=== PATIENT | female | born 1975 | race Caucasian/White ===

== ENCOUNTER 2016-04-22 21:50 | Emergency (ER) | payer OTHER ==
[~2016-04-22] VITALS: Ht 160 cm; Wt 66.0 kg
[~2016-04-22 21:50] MED LIST: CEFE1FRO IV; CYCL-319 PO; LORA10TA3 PO; NAPR-688 PO; ONDA-43 PO; VALP250C PO
[2016-04-22 21:53] VITALS: Ht 160 cm; Wt 66.0 kg
[2016-04-22] MEDS ORDERED: ONDANSETRON 4 MG INJ IV STA (22:25)
[2016-04-22] MEDS ORDERED: morphine 4 MG/ML VIAL IV STA (22:25)
[2016-04-22 23:17] LABS: ADD UMIC YES; URINE BILIRUBIN (Dip) NEGATIVE (NEGATIVE); URINE BLOOD (Dip) NEGATIVE (NEGATIVE); URINE COLOR LT. YELLOW (YELLOW); URINE GLUCOSE (Dip) NEGATIVE (NEGATIVE); URINE KETONES (Dip) TRACE (NEGATIVE); URINE LEUKOCYTE ESTERASE (Dip) 2+ (NEGATIVE); URINE NITRITE (Dip) POSITIVE (NEGATIVE); URINE TOTAL PROTEIN (Dip) NEGATIVE (NEGATIVE); URINE UROBILINOGEN (Dip) 1.0 E.U./dL (0.1-1.0)
--- NOTE | 2016-04-22 23:25 | ERD ---
ER Documentation Chief Complaint Date/Time DATE: 04/22/16 TIME: 23:23 Chief Complaint right thigh pain radaiting to back HPI 40 year old female with a history of emphysematous pyelonephritis with stent placement comes in with right sided flank pain that radiates down her leg for the past 2 days. She denies fever, chills, chest pain, shortness of breath. No dysuria, urgency or frequency. ROS All systems reviewed and are negative except as per history of present illness. Medications Home Meds Active Scripts Hydrocodone/Acetaminophen ([place] 5-325 Tablet) 1 Each Tablet, 1 TAB PO Q6H Y for PAIN, #20 TAB Prov:HUMBERTO CROSS PA-C 04/23/16 Ciprofloxacin Hcl* (Ciprofloxacin Hcl*) 500 Mg Tablet, 500 MG PO BID for 10 Days , TAB Prov:HUMBERTO CROSS PA-C 04/23/16 Ondansetron Hcl* (Zofran*) 4 Mg Tab, 4 MG PO Q6H Y for NAUSEA AND OR VOMITING for 14 Days, TAB Prov:JASSI GODINEZ S. 10/03/15 Cefepime Hcl/Dextrose, Iso-Osm (Cefepime 1 Gm Injection) 1 Gm/50 Ml Froz.piggy, 1 GM IV DAILY for 10 Days Prov:JASSI GODINEZ S. 10/03/15 Valproic Acid* (Depakene*) 250 Mg Capsule, 250 MG PO BID for 30 Days, CAP Prov:JASSI GODINEZ S. 10/03/15 Cyclobenzaprine Hcl* (Cyclobenzaprine Hcl*) 10 Mg Tablet, 10 MG PO TID for 30 Days, TAB Prov:JASSI GODINEZ S. 10/03/15 Reported Medications Loratadine* (Loratadine*) 10 Mg Tablet, 10 MG PO DAILY, #30 TAB 09/28/15 Naproxen* (Naproxen*) 500 Mg Tablet, 500 MG PO TID, TAB 09/28/15 Allergies Allergies: Coded Allergies: ibuprofen (Verified Allergy, Unknown, 03/06/14) PMhx/Soc History of Surgery: Yes (hysterectomy, R ureteral stent placed end of august) Anesthesia Reaction: No Hx Neurological Disorder: Yes (auqino's palsy, migraines) Hx Respiratory Disorders: No Hx Cardiac Disorders: No Hx Psychiatric Problems: No Hx Miscellaneous Medical Probl: Yes (B kidney stones) Hx Alcohol Use: Yes (beer occasionally) Hx Substance Use: No Hx Tobacco Use: No Smoking Status: Never smoker Physical Exam Vitals Vital Signs Date Time Temp Pulse Resp B/P Pulse Ox O2 Delivery O2 Flow Rate FiO2 04/23/16 01:49 98.0 57 115/60 100 Room Air 04/22/16 21:53 98.4 63 20 142/67 98 Physical Exam General: Well-developed, well-nourished. The patient appears in no acute distress. HEENT: Head is normocephalic, atraumatic. No scleral icterus. Pupils are equal , round, and reactive. Oral mucous membranes are moist. No pharyngeal erythema. Neck: Supple. Nontender. Lungs: Clear to auscultation. Normal air movement. Heart: Regular rate and rhythm. S1 and S2 are normal. No murmurs, gallops, or rubs. Abdomen: Soft, nontender, nondistended. Bowel sounds are normoactive. Extremities: No clubbing or cyanosis. Normal pulses. Moving extremities x 4. No weakness. Neurologic: Alert and oriented 3. No focal deficits. Skin: Normal turgor. No rash or lesions. Result Diagram: 04/22/16224204/22/162242 Results 24 hrs Laboratory Tests Test 04/22/16 22:40 04/22/16 22:43 Urine Bacteria MANY Urine Bilirubin NEGATIVE Urine Clarity CLEAR Urine Color LT. YELLOW Urine Glucose NEGATIVE% Urine Hemoglobin NEGATIVE Urine Ketones TRACE Urine Leukocyte Esterase 2+ Urine Microscopic RBC 0-2/HPF Urine Microscopic WBC 10-25/HPF Urine Nitrite POSITIVE Urine Specific [place] 1.020 Urine Squamous Epithelial Cells FEW Urine Total Protein NEGATIVE Urine Urobilinogen 1.0 E.U./dL Urine pH 6.5 Alanine Aminotransferase (ALT/SGPT) 70IU/L Albumin 4.6g/dl Albumin/Globulin Ratio 1.31 Alkaline Phosphatase 101IU/L Anion Gap 19 Aspartate Amino Transf (AST/SGOT) 41IU/L Basophils % 0.5% Blood Urea Nitrogen 9mg/dl Calcium Level 9.5mg/dl Carbon Dioxide Level 29mmol/L Chloride Level 100mmol/L Creatinine 0.70mg/dl Direct Bilirubin 0.00mg/dl Eosinophils % 2.1% Globulin 3.50g/dl Glucose Level 117mg/dl Hematocrit 39.1% Hemoglobin 13.7g/dl Indirect Bilirubin 0.3mg/dl Lipase 120U/L Lymphocytes % 41.9% Mean Corpuscular Hemoglobin 30.6pg Mean Corpuscular Hemoglobin Concent 35.0g/dl Mean Corpuscular Volume 87.3fl Mean Platelet Volume 9.4fl Monocytes % 9.9% Neutrophils % 45.1% Platelet Count 65907^3/UL Potassium Level 4.0mmol/L Red Blood Count 4.4810^6/ul Red Cell Distribution Width 40.5% Sodium Level 144mmol/L Total Bilirubin 0.3mg/dl Total Protein 8.1g/dl White Blood Count 8.010^3/ul Current Medications Medications (Trade) Dose Ordered Sig/Ramiro Route PRN Reason Start Time Stop Time Status Last Admin Dose Admin Morphine Sulfate (morphine) 4 mg ONCE STAT IV 04/22/16 22:25 04/22/16 22:26 DC 04/22/16 22:46 Ondansetron HCl 4 mg 4 mg ONCE STAT IV 04/22/16 22:25 04/22/16 22:26 DC 04/22/16 22:46 Sodium Chloride 1,000 ml @ 1,000 mls/hr Q1H ONCE IV 04/22/16 23:30 04/23/16 00:29 DC 04/23/16 01:05 Sodium Chloride (NS) 100 ml @ ud STK-MED ONCE .ROUTE 04/22/16 23:54 04/22/16 23:55 DC 04/23/16 00:10 Iohexol 150 ml 150 ml STK-MED ONCE .ROUTE 04/22/16 23:54 04/22/16 23:55 DC 04/23/16 00:09 Ceftriaxone Sodium (Rocephin) 50 ml @ 100 mls/hr ONCE ONCE IVPB 04/23/16 00:00 04/23/16 00:29 DC 04/23/16 01:05 PROCEDURE: CT ABDOMEN/PELVIS WITH CONTRAST CLINICAL INDICATION: 40-year-old female with right flank pain. TECHNIQUE: The study was performed utilizing a [employer] VCT 64-slice CT scanner. Direct axial sections were obtained through the abdomen and pelvis with the use of 100 cc of Omnipaque-300 nonionic intravenous contrast material. Sagittal and coronal reformations were obtained. Automated exposure control and iterative reconstruction techniques were utilized for this examination. The images were reviewed on a PACS workstation. CTD/vol = 10.7 mGy; Total Exam DLP = 599.0 mGy-cm. COMPARISON: CT abdomen/pelvis October 02, 2015. FINDINGS: There is minimal bibasilar subsegmental atelectasis. There is no evidence for significant pleural effusion. The liver has a normal size and contour. There is diffuse decreased density throughout the liver consistent with fatty infiltration without focal areas of abnormal density or contrast enhancement. No intrahepatic nor extrahepatic biliary ductal dilatation is seen. The gallbladder demonstrates no wall thickening nor pericholecystic fluid. No biliary stones are evident. The pancreas is without areas of abnormal attenuation or contrast enhancement. This spleen is identified and has a normal size without abnormal density or contrast enhancement. The adrenal glands are unremarkable. The kidneys are functional bilaterally. There is a irregular contour within the right renal cortex consistent with scarring. There is mild residual prominence of the right renal collecting system with right-sided hydronephrosis and prominent dilatation of the distal right ureter. Note however that there is no longer evidence for significant periureteral infiltration. Thickened perinephric infiltration. The urinary bladder contains urine. There is no evidence for bowel obstruction. The appendix is visualized and is without edema or surrounding inflammatory reaction. The uterus is unremarkable. There is no significant free fluid. The aortoiliac vessels are without aneurysmal dilatation. The osseous structures are intact. IMPRESSION: 1. Minimal bibasilar subsegmental atelectasis. 2. Diffuse fatty infiltration of the liver. 3. Scarring within the right kidney with mild residual prominence of the collecting system and right-sided hydroureteronephrosis with dilatation of the distal right ureter as previously visualized with resolving perinephric and periureteral infiltration. A persistent partially obstructing distal right ureteral stricture cannot be excluded. 4. No CT evidence for appendicitis. .Dejon Mathur MD, Date Time Electronically viewed and signed by .Dejon Mathur MD, MD on 04/23/2016 01:24 Procedures/MDM ED COURSE: Patient had labs, urine obtained. IV line established, she was given NS bolus, Morphine 4mg IV, zofran 4mg IV. Rocephin 1gm IV was administered as well as NS 1L IV. MDM: 40 year old female comes in with right flank pain and evidence of UTI, she was treated as pyelonephritis. CT shows evidence of inflammatory changes, there is no evidence of emphysematous pyelonephritis, infected kidney stone. She was concerned that we may need to call her urologist who is Dr. Carroll, I explained to the patient that I spoke with my attending physician regarding this , as well as her presentation, lab work and urine, and CT, and that there was no urologic or surgical emergency, therefore she may be discharged home. I emphasized to her that we did treat her pain, she was given IV antibiotics, as well as fluids. Her renal function is normal, and patient is not septic. Given this that we can discharge her at this time, and she may follow-up with him outpatient. The case was reviewed and discussed with Dr. Gregg who agrees with the plan of care including labs, treatment, and advanced imaging as appropriate. Departure Diagnosis: Primary Impression: Pyelonephritis Condition: Good HUMBERTO CROSS PA-C Apr 22, 2016 23:25
[2016-04-22 23:27] LABS: ALBUMIN 4.6 g/dl (3.3-4.9)
[2016-04-22 23:30] LABS: ALBUMIN/GLOBULIN RATIO 1.31; BILIRUBIN,INDIRECT 0.3 mg/dl (0-1.1); BILIRUBIN,TOTAL 0.3 mg/dl (0.2-1.3); CREATININE 0.7 mg/dl (0.44-1.00); TOTAL PROTEIN 8.1 g/dl (6.1-8.1)
[2016-04-22] MEDS ORDERED: SOD CHLORIDE 0.9% 1,000 ML IV ONE (23:30)
[2016-04-22 23:31] LABS: CALCIUM 9.5 mg/dl (8.4-10.2)
[2016-04-22 23:54] LABS: BACTERIA,URINE MANY; SQUAMOUS EPITHELIAL CELL,UR FEW; URINE RBCS 0-2 /HPF (0)
[2016-04-22] MEDS ORDERED: IOHEXOL 300MG/ML 150 ML BTL ONE (23:54)
[2016-04-22] MEDS ORDERED: SOD CHLORIDE 0.9% 100 ML ONE (23:54)
[2016-04-23] MEDS ORDERED: CEFTRIAXONE 1 GM/50 ML (PMX) 50 ML IVPB ONE
[2016-04-23 00:06] LABS: RED BLOOD COUNT 4.48 10^6/ul (4.20-5.40)
[2016-04-23 00:07] LABS: HEMATOCRIT 39.1 % (37.0-47.0); HEMOGLOBIN 13.7 g/dl (12.0-16.0); MEAN CORPUSCULAR HEMOGLOBIN 30.6 pg (29.0-33.0); MEAN CORPUSCULAR VOLUME 87.3 fl (82.0-101.0); PLATELET COUNT 417 10^3/UL (140-440); RED CELL DISTRIBUTION WIDTH 40.5 % (11.5-14.5)
[2016-04-23 00:08] LABS: BASOPHILS % 0.5 % (0.0-2.0); EOSINOPHILS % 2.1 % (0.0-7.0); LYMPHOCYTES % 41.9 % (15.0-51.0); MEAN PLATELET VOLUME 9.4 fl (7.4-10.4); MONOCYTES % 9.9 % (0.0-11.0); NEUTROPHILS % 45.1 % (39.0-77.0)
--- NOTE | 2016-04-23 01:24 | RADRPT ---
PROCEDURE: CT ABDOMEN/PELVIS WITH CONTRAST CLINICAL INDICATION: 40-year-old female with right flank pain. TECHNIQUE: The study was performed utilizing a GE [employer] VCT 64-slice CT scanner. Direct axia l sections were obtained through the abdomen and pelvis with the use of 100 cc of Omnipaque-300 dewayne onic intravenous contrast material. Sagittal and coronal reformations were obtained. Automated expos ure control and iterative reconstruction techniques were utilized for this examination. The images were reviewed on a PACS workstation. CTD/vol = 10.7 mGy; Total Exam DLP = 599.0 mGy-cm. COMPARISON: CT abdomen/pelvis October 02, 2015. FINDINGS: There is minimal bibasilar subsegmental atelectasis. There is no evidence for significant pleural e ffusion. The liver has a normal size and contour. There is diffuse decreased density throughout th e liver consistent with fatty infiltration without focal areas of abnormal density or contrast enhan cement. No intrahepatic nor extrahepatic biliary ductal dilatation is seen. The gallbladder demonstr ates no wall thickening nor pericholecystic fluid. No biliary stones are evident. The pancreas is wi thout areas of abnormal attenuation or contrast enhancement. This spleen is identified and has a no rmal size without abnormal density or contrast enhancement. The adrenal glands are unremarkable. The kidneys are functional bilaterally. There is a irregular contour within the right renal cortex cons istent with scarring. There is mild residual prominence of the right renal collecting system with r ight-sided hydronephrosis and prominent dilatation of the distal right ureter. Note however that there is no longer evidence for significant periureteral infiltration. Thickened perinephric infilt ration. The urinary bladder contains urine. There is no evidence for bowel obstruction. The appendi x is visualized and is without edema or surrounding inflammatory reaction. The uterus is unremarkabl e. There is no significant free fluid. The aortoiliac vessels are without aneurysmal dilatation. Th e osseous structures are intact. IMPRESSION: 1. Minimal bibasilar subsegmental atelectasis. 2. Diffuse fatty infiltration of the liver. 3. Scarring within the right kidney with mild residual prominence of the collecting system and righ t-sided hydroureteronephrosis with dilatation of the distal right ureter as previously visualized wi th resolving perinephric and periureteral infiltration. A persistent partially obstructing distal r ight ureteral stricture cannot be excluded. 4. No CT evidence for appendicitis. .Dejon Mathur MD, MD Date Time Electronically viewed and signed by .Dejon Mathur MD, MD on 04/23/2016 01:24 .[place]
[2016-04-23] MEDS ORDERED: CIPR500T4 PO (01:31)
[2016-04-23] MEDS ORDERED: HYDR-906 PO (01:31)
[2016-04-23 01:49] VITALS: BP 115/60; PULSE 57; TEMP 98
[2016-04-23] MEDS ORDERED: morphine 4 MG/ML VIAL IV STA (01:56)
== END 2016-04-23 04:56 | disposition home or self-care (01) ==
LOC: FTE 21:50
DX: N12 Tubulo-interstitial nephritis, not specified as acute or chronic (principal)
CPT/HCPCS: 36415; 74177; 80053; 81001; 83690; 85025; 87086; 96365; 96375; 96376; J0696; J2270; J2405; J7030; Q9967; Z7502; Z7610; 81003

== ENCOUNTER 2016-05-07 23:49 | Emergency (ER) | payer OTHER ==
[~2016-05-07] VITALS: Ht 152.4 cm; Wt 63.5 kg
[~2016-05-07 23:49] MED LIST changes: +CIPR500T4 PO; +HYDR-906 PO
[2016-05-08 01:35] VITALS: Ht 152.4 cm; Wt 63.5 kg
[2016-05-08] MEDS ORDERED: SOD CHLORIDE 0.9% 1,000 ML IV STA (01:57)
[2016-05-08] MEDS ORDERED: ONDANSETRON 4 MG INJ IV STA (01:57)
[2016-05-08] MEDS ORDERED: morphine 10 MG INJ IV ONE (02:00)
[2016-05-08 02:31] LABS: ADD SCAN DIFF NO
[2016-05-08 02:35] LABS: ADD UMIC YES; URINE BLOOD (Dip) 3+ (NEGATIVE); URINE COLOR LT. YELLOW (YELLOW); URINE GLUCOSE (Dip) NEGATIVE (NEGATIVE); URINE KETONES (Dip) TRACE (NEGATIVE); URINE LEUKOCYTE ESTERASE (Dip) NEGATIVE (NEGATIVE); URINE NITRITE (Dip) NEGATIVE (NEGATIVE); URINE TOTAL PROTEIN (Dip) NEGATIVE (NEGATIVE); URINE UROBILINOGEN (Dip) 1.0 E.U./dL (0.1-1.0)
[2016-05-08 02:37] LABS: BASOPHILS % 0.4 % (0.0-2.0); EOSINOPHILS # 0.2 10^3/ul (0.0-0.5); EOSINOPHILS % 2.4 % (0.0-7.0); HEMATOCRIT 38.7 % (37.0-47.0); HEMOGLOBIN 13.4 g/dl (12.0-16.0); LYMPHOCYTES # 3.5 10^3/ul (0.8-2.9); LYMPHOCYTES % 37.2 % (15.0-51.0); MEAN CORPUSCULAR HEMOGLOBIN 30.1 pg (29.0-33.0); MEAN CORPUSCULAR HGB CONC 34.6 g/dl (32.0-37.0); MEAN PLATELET VOLUME 8.9 fl (7.4-10.4); MONOCYTE # 0.8 10^3/ul (0.3-0.9); MONOCYTES % 8.8 % (0.0-11.0); NEUTROPHIL # 4.7 10^3/ul (1.6-7.5); NEUTROPHILS % 50.8 % (39.0-77.0); PLATELET COUNT 341 10^3/UL (140-415); RED BLOOD COUNT 4.45 10^6/ul (4.20-5.40); RED CELL DISTRIBUTION WIDTH 12.5 % (11.5-14.5); WHITE BLOOD COUNT 9.3 10^3/ul (4.8-10.8)
[2016-05-08 02:37] LABS: URINE BILIRUBIN (Dip) NEGATIVE (NEGATIVE)
[2016-05-08 02:45] LABS: BACTERIA,URINE MODERATE; SQUAMOUS EPITHELIAL CELL,UR MANY
[2016-05-08 03:04] LABS: ALBUMIN 4.3 g/dl (3.3-4.9); CHLORIDE 103 mmol/L (97-110)
[2016-05-08 03:07] LABS: BILIRUBIN,INDIRECT 0.5 mg/dl (0-1.1); BILIRUBIN,TOTAL 0.5 mg/dl (0.2-1.3); CREATININE 0.59 mg/dl (0.44-1.00)
[2016-05-08 03:08] LABS: ALANINE AMINOTRANSFERASE 54 IU/L (13-69); ALBUMIN/GLOBULIN RATIO 1.38; ALKALINE PHOSPHATASE 124 IU/L (42-121); ASPARTATE AMINO TRANSFERASE 40 IU/L (15-46); BLOOD UREA NITROGEN 8 mg/dl (7-20); CALCIUM 9.6 mg/dl (8.4-10.2); CARBON DIOXIDE 25 mmol/L (21-31); GLUCOSE 107 mg/dl (70-220); TOTAL PROTEIN 7.4 g/dl (6.1-8.1)
[2016-05-08 03:22] LABS: ANION GAP 18 (8-16)
--- NOTE | 2016-05-08 03:25 | RADRPT ---
PROCEDURE: CHEST - 1 VIEW CLINICAL INDICATION: 40-year-old female with chest/abdominal pain. TECHNIQUE: A single frontal AP view of the chest was performed portably. The images were reviewed on a PACS workstation. COMPARISON: Chest X-ray October 02, 2015. FINDINGS: There has been interval removal of the left-sided PICC line. There is a small ovoid nodular density within the left upper lung zone measuring 4 mm presumably representing a granuloma without signific ant interval change. The cardiomediastinal silhouette has a normal appearance. There is no evidenc e for an infiltrate. There is no evidence for congestive heart failure. There is no evidence for pn eumothorax. The osseous structures are intact. IMPRESSION: 1. No evidence for active cardiopulmonary disease. 2. Left upper lung zone 4 mm granuloma. .Dejon Mathur MD, MD Date Time Electronically viewed and signed by .Dejon Mathur MD, on 05/08/2016 03:25 .M/
[2016-05-08 03:49] LABS: POTASSIUM 3.9 mmol/L (3.5-5.1); SODIUM 142 mmol/L (135-144); TROPONIN-I < 0.012 ng/ml (0.00-0.12)
[2016-05-08] MEDS ORDERED: HYDR-906 PO (04:47)
[2016-05-08 04:55] VITALS: BP 113/64; PULSE 50; RESP 16; TEMP 98.7
--- NOTE | 2016-05-08 14:14 | ERD ---
ER Documentation Chief Complaint Date/Time DATE: 05/08/16 TIME: 14:01 Chief Complaint Chest pain and flank pain 3 weeks HPI 40 year old female with a history of emphysematous pyelonephritis is presenting with chronic flank pain that is worsening. She was seen 04/22/16 in the ED and had a CT scan done that showed persistent right hydronephrosis and hydroureter with likely distal stricture. She also had a UTI at that time and was placed on antibiotics. She had scheduled a follow up with her URologist 05/2016. Her symptoms have slightly improved, but she continues to have pain. Pain is stabbing, 9/10 in the right flank, radiating to the groin and down her right leg. There is no change in the location or quality of her pain from her usual. She has no pain medications at home. She also complains of chest pain, which she states is due to her anxiety. She did not take her anxiety medication today. She denies fevers, chills, vomiting, diarrhea. ROS All systems reviewed and are negative except as per history of present illness. Medications Home Meds Active Scripts Hydrocodone/Acetaminophen ([place] 5-325 Tablet) 1 Each Tablet, 1 TAB PO Q6H Y for PAIN, #7 TAB Prov:MING BALDWIN MD 05/08/16 Hydrocodone/Acetaminophen ([place] 5-325 Tablet) 1 Each Tablet, 1 TAB PO Q6H Y for PAIN, #20 TAB Prov:HUMBERTO CROSS PA-C 04/23/16 Ciprofloxacin Hcl* (Ciprofloxacin Hcl*) 500 Mg Tablet, 500 MG PO BID for 10 Days , TAB Prov:HUMBERTO CROSS PA-C 04/23/16 Ondansetron Hcl* (Zofran*) 4 Mg Tab, 4 MG PO Q6H Y for NAUSEA AND OR VOMITING for 14 Days, TAB Prov:JASSI GODINEZ S. 10/03/15 Cefepime Hcl/Dextrose, Iso-Osm (Cefepime 1 Gm Injection) 1 Gm/50 Ml Froz.piggy, 1 GM IV DAILY for 10 Days Prov:JASSI GODINEZ S. 10/03/15 Valproic Acid* (Depakene*) 250 Mg Capsule, 250 MG PO BID for 30 Days, CAP Prov:JASSI GODINEZ S. 10/03/15 Cyclobenzaprine Hcl* (Cyclobenzaprine Hcl*) 10 Mg Tablet, 10 MG PO TID for 30 Days, TAB Prov:JASSI GODINEZ 10/03/15 Reported Medications Loratadine* (Loratadine*) 10 Mg Tablet, 10 MG PO DAILY, #30 TAB 09/28/15 Naproxen* (Naproxen*) 500 Mg Tablet, 500 MG PO TID, TAB 09/28/15 Allergies Allergies: Coded Allergies: ibuprofen (Verified Allergy, Unknown, 03/06/14) PMhx/Soc History of Surgery: Yes (hysterectomy, R ureteral stent placed end of august) Anesthesia Reaction: No Hx Neurological Disorder: Yes (aquino's palsy, migraines) Hx Respiratory Disorders: No Hx Cardiac Disorders: No Hx Psychiatric Problems: Yes (anxiety) Hx Miscellaneous Medical Probl: Yes (B kidney stones) Hx Alcohol Use: Yes (beer occasionally) Hx Substance Use: No Hx Tobacco Use: No Smoking Status: Never smoker FmHx Family History: No diabetes Physical Exam Vitals Vital Signs Date Time Temp Pulse Resp B/P Pulse Ox O2 Delivery O2 Flow Rate FiO2 05/08/16 04:55 98.7 50 16 113/64 100 Room Air 05/08/16 03:00 50 13 104/63 99 Room Air 05/08/16 01:35 97.2 65 18 113/66 99 Physical Exam Const: Nontoxic, appears uncomfortable Head: Atraumatic Eyes: Normal Conjunctiva ENT: Normal External Ears, Nose and Mouth. Neck: Full range of motion. No meningismus. Resp: Clear to auscultation bilaterally Cardio: Regular rate and rhythm, no murmurs Abd: Soft, mild RLQ tenderness, no rebound or guarding, non distended. Normal bowel sounds Skin: No petechiae or rashes Back: R CVA mild tenderness Ext: No cyanosis, or edema Neur: Awake and alert Psych: Depressed Mood and flat Affect Result Diagram: 05/08/1622105/08/16221 Results 24 hrs Laboratory Tests Test 05/08/16 02:10 05/08/16 02:22 Urine Bacteria MODERATE Urine Bilirubin NEGATIVE Urine Clarity CLEAR Urine Color LT. YELLOW Urine Glucose NEGATIVE% Urine Hemoglobin 3+ Urine Ketones TRACE Urine Leukocyte Esterase NEGATIVE Urine Microscopic RBC 2-5/HPF Urine Microscopic WBC 2-5/HPF Urine Nitrite NEGATIVE Urine Test NEGATIVE Urine Specific [place] 1.020 Urine Squamous Epithelial Cells MANY Urine Total Protein NEGATIVE Urine Urobilinogen 1.0 E.U./dL Urine pH 6.5 Alanine Aminotransferase (ALT/SGPT) 54IU/L Albumin 4.3g/dl Albumin/Globulin Ratio 1.38 Alkaline Phosphatase 124IU/L Anion Gap 18 Aspartate Amino Transf (AST/SGOT) 40IU/L Basophils # 0.010^3/ul Basophils % 0.4% Blood Urea Nitrogen 8mg/dl Calcium Level 9.6mg/dl Carbon Dioxide Level 25mmol/L Chloride Level 103mmol/L Creatinine 0.59mg/dl Direct Bilirubin 0.00mg/dl Eosinophils # 0.210^3/ul Eosinophils % 2.4% Globulin 3.10g/dl Glucose Level 107mg/dl Hematocrit 38.7% Hemoglobin 13.4g/dl Indirect Bilirubin 0.5mg/dl Lipase 94U/L Lymphocytes # 3.510^3/ul Lymphocytes % 37.2% Mean Corpuscular Hemoglobin 30.1pg Mean Corpuscular Hemoglobin Concent 34.6g/dl Mean Corpuscular Volume 87.0fl Mean Platelet Volume 8.9fl Monocytes # 0.810^3/ul Monocytes % 8.8% Neutrophils # 4.710^3/ul Neutrophils % 50.8% Nucleated Red Blood Cells # 0.010^3/ul Nucleated Red Blood Cells % 0.0/100WBC Platelet Count 91238^3/UL Potassium Level 3.9mmol/L Red Blood Count 4.4510^6/ul Red Cell Distribution Width 12.5% Sodium Level 142mmol/L Total Bilirubin 0.5mg/dl Total Protein 7.4g/dl Troponin I < 0.012ng/ml White Blood Count 9.310^3/ul Current Medications Medications (Trade) Dose Ordered Sig/Ramiro Route PRN Reason Start Time Stop Time Status Last Admin Dose Admin Sodium Chloride (NS) 1,000 ml @ 1,000 mls/hr Q1H STAT IV 05/08/16 01:57 05/08/16 02:56 DC 05/08/16 02:28 Ondansetron HCl (Zofran Inj) 4 mg ONCE STAT IV 05/08/16 01:57 05/08/16 01:58 DC 05/08/16 02:28 Morphine Sulfate (morphine) 6 mg ONCE ONCE IV 05/08/16 02:00 05/08/16 02:01 DC 05/08/16 02:28 Procedures/[facility] EKG: Sinus bradycardia at 58bpm, no acute ST/T changes, no arrhythmias Patient is presenting with flank pain. Diagnoses considered are AAA, renal artery or vein thromoembolism, aortic dissection, pyelonephritis, retroperitoneal hemorrhage, ureterolithiasis, biliary colic, pancreatitis, appendicitis, colitis, as well as spinal emergencies, among others. Her vitals are stable and she is afebrile and nontoxic. I suspect her symptoms are secondary to her persistent hydronephrosis and hydroureter seen on her CT done . Morphine was given with improvement of pain. I reviewed her urine culture from that visit, and it grew E coli. Today her urine does not show infection. Her labs are also unremarkable. I doubt any serious intraabdominal pathology or perinephric abscess. With regard to her chest pain,I do not suspect ACS, PE, dissection. Trop was negative. EKG was normal. I do not think further workup is necessary at this time. I urged the patient to try and see if she can get an appointment sooner with her urologist and what she most likely needs is intervention to relieve her hydronephrosis. However, this does not have to be done emergently. The current assessment has been explained to the patient including the fact that the etiology of the pain cannot be ruled out with certainty. Patient was advised that in the event this is early in the process of a more serious condition they may expect their symptoms to worsen and if so to return to the emergency department immediately. Patient was advised to follow up with primary care physician as soon as possible for re-evaluation within the next 1-2 days as well. All of the patients questions were answered. Patient verbalized understanding of plan and agrees. Advised to return to the ER for reevaluation within 12 hours if symptoms worsen. Rx was given for 7 tabs of Dr[place]. Departure Diagnosis: Primary Impression: Chronic flank pain Additional Impression: Anxiety Condition: Stable Patient Instructions: Hydronephrosis Adult, Anxiety Reaction, Flank Pain, Uncertain Cause Additional Instructions: Call your Urologist for a sooner appointment. Return for worsening symptoms. MING BALDWIN MD May 08, 2016 14:12
== END 2016-05-08 04:56 | disposition home or self-care (01) ==
LOC: E/R 23:49
DX: R10.31 Right lower quadrant pain (principal); F41.9 Anxiety disorder, unspecified
CPT/HCPCS: 36415; 71010; 80053; 81001; 81003; 83690; 84484; 84703; 85025; 87086; 96374; 96375; J2270; J2405; J7030; Z7502

== ENCOUNTER 2016-11-26 20:57 | Emergency (ER) | payer OTHER ==
[~2016-11-26] VITALS: Ht 162.6 cm; Wt 65.8 kg
[2016-11-26 21:01] VITALS: Ht 162.6 cm; Wt 65.8 kg
[2016-11-26] MEDS ORDERED: ONDANSETRON 4 MG INJ IV STA (23:52)
[2016-11-26] MEDS ORDERED: KETOROLAC 30 MG INJ IV STA (23:52)
[2016-11-27 00:57] LABS: BASOPHILS % 0.3 % (0.0-2.0); EOSINOPHILS # 0.3 10^3/ul (0.0-0.5); EOSINOPHILS % 3.5 % (0.0-7.0); HEMOGLOBIN 12.1 g/dl (12.0-16.0); LYMPHOCYTES # 3.4 10^3/ul (0.8-2.9); LYMPHOCYTES % 39.3 % (15.0-51.0); MEAN CORPUSCULAR HEMOGLOBIN 30.3 pg (29.0-33.0); MEAN CORPUSCULAR HGB CONC 33.6 g/dl (32.0-37.0); MEAN CORPUSCULAR VOLUME 90.2 fl (82.0-101.0); MEAN PLATELET VOLUME 9.7 fl (7.4-10.4); MONOCYTE # 0.8 10^3/ul (0.3-0.9); MONOCYTES % 9.4 % (0.0-11.0); NEUTROPHILS % 46.2 % (39.0-77.0); PLATELET COUNT 399 10^3/UL (140-415); RED BLOOD COUNT 3.99 10^6/ul (4.20-5.40); WHITE BLOOD COUNT 8.6 10^3/ul (4.8-10.8)
[2016-11-27 01:15] LABS: ALBUMIN 4.3 g/dl (3.3-4.9); ALBUMIN/GLOBULIN RATIO 1.26; BILIRUBIN,INDIRECT 0.2 mg/dl (0-1.1); BILIRUBIN,TOTAL 0.2 mg/dl (0.2-1.3); CALCIUM 8.9 mg/dl (8.4-10.2); CREATININE 0.68 mg/dl (0.44-1.00); POTASSIUM 3.8 mmol/L (3.5-5.1); TOTAL PROTEIN 7.7 g/dl (6.1-8.1)
[2016-11-27 01:28] LABS: ADD UMIC NO; UR ASCORBIC ACID NEGATIVE (NEGATIVE); UR BILIRUBIN (Dip) NEGATIVE (NEGATIVE); UR BLOOD (Dip) NEGATIVE (NEGATIVE); UR CLARITY CLEAR (CLEAR); UR COLOR YELLOW (YELLOW); UR GLUCOSE (Dip) NEGATIVE (NEGATIVE); UR KETONES (Dip) NEGATIVE (NEGATIVE); UR LEUKOCYTE ESTERASE (Dip) NEGATIVE Leu/ul (NEGATIVE); UR NITRITE (Dip) NEGATIVE (NEGATIVE); UR SPECIFIC GRAVITY (Dip) 1.019 (1.003-1.030); UR TOTAL PROTEIN (Dip) NEGATIVE (NEGATIVE); UR UROBILINOGEN (Dip) 2+ mg/dL (NEGATIVE)
--- NOTE | 2016-11-27 01:36 | RADRPT ---
PROCEDURE: CT ABDOMEN/PELVIS WITHOUT CONTRAST CLINICAL INDICATION: 40-year-old female with abdominal pain. TECHNIQUE: The study was performed utilizing a GE [employer] VCT 64-slice CT scanner. Direct axia l sections were obtained through the abdomen and pelvis without the use of intravenous contrast mate rial. Sagittal and coronal reformations were obtained. One or more of the following dose reduction t echniques were utilized: automated exposure control, adjustment of the mA and/or kV according to pat ient's size or use of iterative reconstruction technique. The images were reviewed on a PACS workst [employer]. CTD/vol = 11.0 mGy; Total Exam DLP = 600.8 mGy-cm. COMPARISON: CT abdomen/pelvis April 22, 2016. FINDINGS: There is minimal bibasilar subsegmental atelectasis. There is no evidence for significant pleural e ffusion. The liver has a normal contour appears to be enlarged having a maximal length of 24.5 cm. There is diffuse decreased density consistent with fatty infiltration but without focal areas of ab normal density. No intrahepatic nor extrahepatic biliary ductal dilatation is seen. The gallbladder demonstrates no wall thickening nor pericholecystic fluid. No biliary stones are evident. The pancre as is without areas of abnormal attenuation. The spleen is identified and has a normal size without abnormal density. The adrenal glands are unremarkable. The kidneys are without abnormal density. Th ere is no evidence for nephroureterolithiasis. Again noted is mild prominence of the right renal co llecting system with persistent right ureterectasis without evidence for obstructing calculus. The u rinary bladder contains urine. There is mild retained stool within the colon without obstruction. The appendix is visualized and is without abnormal thickening or surrounding inflammatory reaction. The uterus is anteflexed. There is no significant free fluid. The aortoiliac vessels are without an eurysmal dilatation. Degenerative changes are seen at L4-5 similar to the patient's prior study. IMPRESSION: 1. Persistent prominence of the right renal collecting system and ureterectasis without obstructing calculus similar to the patient's prior study possibly due to a distal right ureteral stricture. 2. Hepatomegaly with steatosis. 3. Mild retained stool without obstruction. 4. No CT evidence for appendicitis. 5. L4-5 degenerative changes. .Dejon Mathur MD, MD Date Time Electronically viewed and signed by .Dejon Mathur MD, MD on 11/27/2016 01:36 .M/
[2016-11-27] MEDS ORDERED: morphine 10 MG INJ IV ONE (02:00)
--- NOTE | 2016-11-27 02:11 | RADRPT ---
PROCEDURE: ULTRASOUND PELVIS - TRANSABDOMINAL ONLY CLINICAL INDICATION: 40-year-old female with right-sided pelvic pain. TECHNIQUE: Multiple sonographic images of the pelvis were obtained utilizing a transabdominal tech nique. The images were reviewed on a PACS workstation. COMPARISON: CT abdomen/pelvis November 27, 2016. FINDINGS: The uterus is visualized and measures 8.1 x 4.5 x 7.1 cm. The endometrial echo complex is within nor mal limits and measures 7.2 mm. There is no evidence for free fluid. The right ovary has a normal ec hotexture and measures 4.0 x 1.7 x 2.3 cm. The left ovary has a normal echotexture and measures 3.0 x 2.0 x 2.5 cm. There is flow within the ovaries bilaterally. No adnexal masses are noted. IMPRESSION: Unremarkable transabdominal pelvic ultrasound. .Dejon Mathur MD, MD Date Time Electronically viewed and signed by .Dejon Mathur MD, MD on 11/27/2016 02:11 .M/
[2016-11-27] MEDS ORDERED: HYDR-906 PO (02:16)
--- NOTE | 2016-11-27 02:40 | ERD ---
ER Documentation Chief Complaint Date/Time DATE: 11/27/16 TIME: 02:35 Chief Complaint lower back pain radaiting to right leg HPI This is a 40-year-old female presents to the ER with right-sided flank pain that has been going on over the last few months. Patient has chronic kidney problems and states this is a constant problem. Pain is severe and constant and radiates throughout the right side of her back, and pelvic area. Patient denies any fevers or chills. She denies any urinary frequency or dysuria. She denies any vaginal discharge. Patient tried taking naproxen for pain however it does not work. Patient occasionally sees a urologist, however has not followed up with him. ROS 12 point review of systems was done, all negative except per HPI. Medications Home Meds Active Scripts Hydrocodone/Acetaminophen ([place] 5-325 Tablet) 1 Each Tablet, 1 TAB PO Q6H Y for PAIN, #20 TAB Prov:HADLEY REYNA 11/27/16 Hydrocodone/Acetaminophen ([place] 5-325 Tablet) 1 Each Tablet, 1 TAB PO Q6H Y for PAIN, #7 TAB Prov:MING BALDWIN MD 05/08/16 Hydrocodone/Acetaminophen ([place] 5-325 Tablet) 1 Each Tablet, 1 TAB PO Q6H Y for PAIN, #20 TAB Prov:HUMBERTO CROSS PA-C 04/23/16 Ciprofloxacin Hcl* (Ciprofloxacin Hcl*) 500 Mg Tablet, 500 MG PO BID for 10 Days , TAB Prov:HUMBERTO CROSS PA-C 04/23/16 Ondansetron Hcl* (Zofran*) 4 Mg Tab, 4 MG PO Q6H Y for NAUSEA AND OR VOMITING for 14 Days, TAB Prov:JASSI GODINEZ S. 10/03/15 Cefepime Hcl/Dextrose, Iso-Osm (Cefepime 1 Gm Injection) 1 Gm/50 Ml Froz.piggy, 1 GM IV DAILY for 10 Days Prov:JASSI GODINEZ S. 10/03/15 Valproic Acid* (Depakene*) 250 Mg Capsule, 250 MG PO BID for 30 Days, CAP Prov:JASSI GODINEZ S. 10/03/15 Cyclobenzaprine Hcl* (Cyclobenzaprine Hcl*) 10 Mg Tablet, 10 MG PO TID for 30 Days, TAB Prov:JASSI GODINEZ 10/03/15 Reported Medications Loratadine* (Loratadine*) 10 Mg Tablet, 10 MG PO DAILY, #30 TAB 09/28/15 Naproxen* (Naproxen*) 500 Mg Tablet, 500 MG PO TID, TAB 09/28/15 Allergies Allergies: Coded Allergies: ibuprofen (Verified Allergy, Unknown, 03/06/14) PMhx/Soc History of Surgery: Yes (hysterectomy, R ureteral stent placed end of august) Anesthesia Reaction: No Hx Neurological Disorder: Yes (aquino's palsy, migraines) Hx Respiratory Disorders: No Hx Cardiac Disorders: No Hx Psychiatric Problems: Yes (anxiety) Hx Miscellaneous Medical Probl: Yes (B kidney stones) Hx Alcohol Use: Yes (beer occasionally) Hx Substance Use: No Hx Tobacco Use: No Smoking Status: Never smoker Physical Exam Vitals Vital Signs Date Time Temp Pulse Resp B/P Pulse Ox O2 Delivery O2 Flow Rate FiO2 11/26/16 21:01 98.5 68 20 131/80 100 Physical Exam GENERAL: The patient is well developed and appropriate for usual state of health , in no apparent distress. HEENT: Atraumatic. CHEST: Clear to auscultation bilaterally. There are no rales, wheezes or rhonchi. HEART: Regular rate and rhythm. No murmurs, clicks, rubs or gallops. ABDOMEN: Soft, nontender and nondistended. Good bowel sounds. No rebound or guarding. No gross peritonitis. No gross organomegaly or masses. No Moffett sign or McBurney point tenderness. BACK: No midline or flank tenderness. EXTREMITIES: Equal pulses bilaterally. There is no peripheral clubbing, cyanosis or edema. No focal swelling or erythema. Full range of motion. Grossly neurovascularly intact. NEURO: Alert and oriented. SKIN: There is no apparent rash or petechia. The skin is warm and dry. Result Diagram: 11/27/160 11/27/16 001 Results 24 hrs Laboratory Tests Test 11/27/16 00:10 11/27/16 00:20 White Blood Count 8.610^3/ul Red Blood Count 3.9910^6/ul Hemoglobin 12.1g/dl Hematocrit 36.0% Mean Corpuscular Volume 90.2fl Mean Corpuscular Hemoglobin 30.3pg Mean Corpuscular Hemoglobin Concent 33.6g/dl Red Cell Distribution Width 13.0% Platelet Count 54161^3/UL Mean Platelet Volume 9.7fl Neutrophils % 46.2% Lymphocytes % 39.3% Monocytes % 9.4% Eosinophils % 3.5% Basophils % 0.3% Nucleated Red Blood Cells % 0.0/100WBC Neutrophils # (Manual) 4.010^3/ul Lymphocytes # 3.410^3/ul Monocytes # 0.810^3/ul Eosinophils # 0.310^3/ul Basophils # 0.010^3/ul Nucleated Red Blood Cells # 0.010^3/ul Sodium Level 142mmol/L Potassium Level 3.8mmol/L Chloride Level 103mmol/L Carbon Dioxide Level 21mmol/L Anion Gap 22 Blood Urea Nitrogen 11mg/dl Creatinine 0.68mg/dl Glucose Level 118mg/dl Calcium Level 8.9mg/dl Total Bilirubin 0.2mg/dl Direct Bilirubin 0.00mg/dl Indirect Bilirubin 0.2mg/dl Aspartate Amino Transf (AST/SGOT) 29IU/L Alanine Aminotransferase (ALT/SGPT) 58IU/L Alkaline Phosphatase 83IU/L Total Protein 7.7g/dl Albumin 4.3g/dl Globulin 3.40g/dl Albumin/Globulin Ratio 1.26 Lipase 166U/L Urine Color YELLOW Urine Clarity CLEAR Urine pH 6.0 Urine Specific [place] 1.019 Urine Ketones NEGATIVEmg/dL Urine Nitrite NEGATIVEmg/dL Urine Bilirubin NEGATIVEmg/dL Urine Urobilinogen 2+mg/dL Urine Leukocyte Esterase NEGATIVELeu/ul Urine Hemoglobin NEGATIVEmg/dL Urine Glucose NEGATIVEmg/dL Urine Total Protein NEGATIVEmg/dl Current Medications Medications (Trade) Dose Ordered Sig/Ramiro Route PRN Reason Start Time Stop Time Status Last Admin Dose Admin Ondansetron HCl (Zofran Inj) 4 mg ONCE STAT IV 11/26/16 23:52 11/26/16 23:55 DC 11/27/16 00:28 Ketorolac Tromethamine (Toradol) 30 mg ONCE STAT IV 11/26/16 23:52 11/26/16 23:55 DC 11/27/16 00:29 Morphine Sulfate (morphine) 6 mg ONCE ONCE IV 11/27/16 02:00 11/27/16 02:01 DC 11/27/16 01:59 Procedures/MDM This is a 40-year-old female presents to the ER with recurring flank pain. At this time there is no evidence of kidney stones, UTI or any other acute abdominal emergency. Patient has chronic pain and urgently needs to follow-up with a urologist. Patient is afebrile and extremely well-appearing. She is stable for outpatient follow-up. At this time suspicion for urosepsis is low. Patient my medical decision making with the patient she understands and agrees with plan. Departure Diagnosis: Primary Impression: Chronic flank pain Condition: Stable Patient Instructions: Flank Pain, Uncertain Cause Referrals: [facility] (PCP) Additional Instructions: Specialist:Usted tiene polina condicin mdica que requiere que deny a un especialista dentro de los prximos 1-2 oconnor.POR FAVOR,CON [place] SEGUIMIENTO DE PRIMARIA PHSICIAN refferal. SI USTED NO TIENE UN MDICO GENERAL Y / O USTED NO PUEDE PAGAR jesus a un mdico,los siguientes crabtree RECURSOS sido suministrado a usted. ES [place] RESPONSABILIDAD PARA SER VISTOS POR EL ESPECIALISTA: TIENE QUE IR CON UN UROLOGO LO MAS PRONTRO POSIBLE HADLEY REYNA Nov 27, 2016 02:40
[2016-11-27 03:04] VITALS: BP 128/77; PULSE 77; RESP 20; TEMP 98.5
== END 2016-11-27 03:05 | disposition home or self-care (01) ==
LOC: FTE 20:57
DX: R10.2 Pelvic and perineal pain (principal)
CPT/HCPCS: 36415; 74176; 76856; 80053; 81003; 83690; 85025; 96374; 96375; J1885; J2270; J2405; Z7502